=== PATIENT | male | born 1970 | race Caucasian/White ===

== ENCOUNTER 2025-02-10 14:10 | Emergency (ER) | payer BC, SELFPAY ==
[2025-02-10 14:16] VITALS: BP 171/99
[2025-02-10 14:53] LABS: Urine Albumin Negative (Neg - Trace); Urine Bilirubin Negative (Negative); Urine Character Clear (Clear); Urine Color Yellow; Urine Glucose Negative (Negative); Urine Ketone Negative (Negative); Urine Leukocyte Negative (Negative); Urine Nitrite Negative (Negative); Urine Occult Blood Negative (Negative); Urine Specific Gravity 1.005 (<1.030); Urine Urobilinogen Negative (Neg - 1+)
[2025-02-10 15:11] LABS: ALT (SGPT) 30 U/L (0-50); AST (SGOT) 42 U/L (17-59); Albumin 4.9 g/dl (3.5-5.0); Alkaline Phosphatase 50 U/L (38-126); Blood Urea Nitrogen 11 mg/dl (9-20); Calcium 9.8 mg/dl (8.4-10.2); Carbon Dioxide 23 mmol/L (22-30); Chloride 109 mmol/L (98-107); Glucose 130 mg/dl (70-99); Potassium 4.4 mmol/L (3.5-5.1); Sodium 141 mmol/L (135-145); Total Bilirubin 1.3 mg/dl (0.2-1.3); Total Protein 8.1 g/dl (6.3-8.2); eGFR > 60.00
[2025-02-10 15:23] LABS: Troponin I < 0.012 ng/ml
[2025-02-10 18:25] VITALS: BP 162/92; BMI 37.5
[2025-02-10] MEDS: NSS 1000 IV (18:39)
[2025-02-10 18:45] LABS: % Basophils 0.5 % (0-2); % Eosinophils 0.5 % (0-6); % Immature Granulocytes 0.3 % (0-0.5); % Lymphocytes 21.2 % (20.5-51.1); % Monocytes 7.5 % (1.7-9.3); Absolute Lymphocytes 1.7 10^3/uL (1.2-3.4); Absolute Monocytes 0.6 10^3/uL (0.1-0.6); Absolute Neutrophils 5.5 10^3/uL (1.4-6.5); Hematocrit 46.4 % (39.0-52.0); Hemoglobin 16.4 g/dL (13.0-18.0); Mean Corp Hgb Conc. 35.3 g/dL (33.0-37.0); Mean Corpuscular Hgb 30.1 pg (27.0-31.0); Mean Corpuscular Volume 85.1 fL (80.0-94.0); Nucleated Red Blood Cells % 0 % (-); Platelet Count 237 10^3/uL (130-400); Red Blood Cell Count 5.45 10^6/uL (4.70-6.10); Red Cell Dist. Width 12.5 % (11.5-14.5); White Blood Cell Count 7.8 10^3/uL (4.8-10.8)
--- NOTE | 2025-02-10 19:28 | ED.GENMED ---
History of Present Illness
General
Chief Complaint: Dehydration Symptoms
Time Seen by Provider: 02/10/25 17:54
History of Present Illness
History of Present Illness:
54-year-old male with history of hypertension presenting to the emergency department for concern of dehydration. He reports earlier today he was in the car driving his son and became lightheaded. He notes that he was playing street hockey
yesterday and was not sure if he appropriately hydrated and is unsure if he is presently dehydrated. He now tingling to his upper extremities and dry mouth. Denies chest pain or difficulty breathing. Denies fever or recent illness. Denies any
changes in his medications. Denies abdominal pain or GI symptoms. Denies weakness to his extremities. Denies additional acute medical complaints
Past History
Past History
ED Past Medical History: GERD (Eosinophilic esophagitis)
ED Past Surgical History: Other
Social History
Personal:
Living: with family
Phy Exam
Physical Exam
Physical Exam:
General: Well-appearing, no clinical signs of dehydration, nontoxic and in no acute distress
HEENT: protecting airway
Neck: appears supple
CV: Normal heart rate, regular rhythm
Resp: No accessory muscle use, no increased work of breathing, lungs clear to auscultation bilaterally
Abd: Soft and non-distended, no tenderness to palpation
Extremities: No deformities, no swelling
Neuro: alert, no focal neurologic deficit
: deferred
Rectal: deferred
Psych: Normal affect
Skin: Intact
Course
Orders/Labs/Results
Orders:
Orders
02/10/25 14:21
Electrocardiogram (*1) Urgent
Reason for Study: Chest Pain
EKG- Treatment ONCE
02/10/25 14:31
Comprehensive Metabolic Panel Urgent
Troponin I Urgent
02/10/25 14:33
Urinalysis Reflex To Culture Urgent
Date Specimen was Collected: 02/10/25
Time Specimen was Collected: 14:21
02/10/25 18:33
0.9% Sodium Chloride 1000 ml [Nss] 1,000 ml IV BOLUS
02/10/25 18:39
Complete Blood Count/With Diff Urgent
Abnormal Lab Results
02/10/25
14:31
Chloride 109 H mmol/L
(98-107)
Glucose 130 H mg/dl
(70-99)
02/10/25 18:39
02/10/25 14:31
Vital Signs
Initial and Last Documented VS:
Initial Vital Signs
Temp Pulse Resp BP Pulse Ox
97.9 F 65 16 171/99 98
02/10/25 14:16 02/10/25 14:16 02/10/25 14:16 02/10/25 14:16 02/10/25 14:16
Last Documented Vital Signs
Temp Pulse Resp BP Pulse Ox
97.9 F 65 16 162/92 99
02/10/25 14:16 02/10/25 14:16 02/10/25 14:16 02/10/25 18:25 02/10/25 18:25
MDM/Problems Addressed
MDM/Problems Addressed:
54-year-old male with history of hypertension presenting for concern of dehydration. Vital signs on arrival are significant for hypertension.
On exam, patient is resting comfortably, no acute distress or discomfort. EKG obtained on arrival, nonischemic. Patient does have some dryness to his mucous membranes. Otherwise unremarkable cardiac and pulmonary exam. No focal neurologic
deficits, does report some tingling to his upper extremities. Without present concern for CVA or acute central neurologic process in the absence of any motor or sensory deficits. Plan for screening laboratory analysis and IV fluids. Will reassess
for improvement.
19:30 - Labs are unremarkable. No signs of dehydration, normal electrolyte panel, normal blood counts. Patient reports some symptom improvement after IV fluids. Ultimately feel stable for discharge. Return precautions discussed and patient
verbalized understanding
*EKG
Interpreted by ED Provider?: Yes
EKG Intrepretation Date: 02/10/25
EKG Intrepretation Time: 19:30
Interpretation: normal
Heart Rate: 63
Rate: normal
Rhythm: sinus
[place]: normal axis
Interval: normal interval
QRS Pattern: normal QRS
Ischemia: no ischemia
*Critical Care Note
Total Time (30-74mins, 75-104mins- exclusive of procedures): Not Applicable
ED Attending Note
-
Portions of this chart may have been created with voice recognition software.� Occasional wrong word or��sound alike� substitutions may have occurred due to the inherent limitations of voice recognition software.
Discharge Plan
Departure
Prescriptions:
No Action
lorazepam [Ativan] 0.5 mg tablet
0.5 mg PO BID PRN (Reason: anxiety) Qty: 20 0RF
hydroxyzine HCl 50 mg tablet
50 mg PO BID PRN (Reason: Anxiety) Qty: 20 0RF
Referrals:
Flash Sawant MD [Family Provider] -
Interventions
Interventions:
*Risk Screen - Suicide Last Done: 02/10/25 14:16
*General Assessment Last Done: 02/10/25 17:37
*Neglect/Abuse Screening Last Done: 02/10/25 14:16
*ED- Fall Risk Assessment Last Done: 02/10/25 14:16
*ED COVID-19 Vaccine History Last Done: 02/10/25 17:37
ED- Cardiac Assessment Last Done: 02/10/25 17:37
ED- Neurological Assessment Last Done: 02/10/25 17:37
ED- Pulmonary Assessment Last Done: 02/10/25 17:37
Discharge Date and Time
Print Language: DANISH
== END 2025-02-10 20:10 | disposition home or self-care (01) ==
LOC: EMR 14:10
PROVIDERS: Student in an Organized Health Care Education/Training Program; EMERGENCY PHYSICIAN Student in an Organized Health Care Education/Training Program; FAMILY PHYSICIAN Internal Medicine
DX: R20.2 Paresthesia of skin (principal); R42 Dizziness and giddiness; R68.2 Dry mouth, unspecified; I10 Essential (primary) hypertension; K21.9 Gastro-esophageal reflux disease without esophagitis; K20.0 Eosinophilic esophagitis
CPT/HCPCS: 99284; 96360; 80053; 81003; 84484; 85025; 93005

== ENCOUNTER 2025-09-21 14:15 | Emergency (ER) | payer BC, SELFPAY ==
[2025-09-21 14:20] VITALS: BP 174/108
--- NOTE | 2025-09-21 18:55 | ED.GENMED ---
History of Present Illness
<Libra Yoo PA-C - Last Filed: 09/21/25 19:13>
General
Chief Complaint: Head Injury
Time Seen by Provider: 09/21/25 15:44
History of Present Illness
History of Present Illness:
Conrad is a 55-year-old male who was playing ice hockey when he skated into someone else and fell. Denies any loss of consciousness. Was wearing a helmet that did not have a face shield. Complaining of nose pain. Reports bilateral epistaxis
for which his daughter placed bilateral tampons in his naris prior to arrival.
Past History
<Libra Yoo PA-C - Last Filed: 09/21/25 19:13>
Past History
ED Past Medical History: GERD (Eosinophilic esophagitis)
ED Past Surgical History: Other
Social History
Personal:
Living: with family
Phy Exam
<Libra Yoo PA-C - Last Filed: 09/21/25 19:13>
General Physical Exam
General Presentation: well appearing and no apparent distress
General Skin: warm and dry
General Habitus: normal
General Mental: alert
General Hydration: appears well hydrated
ENT Exam
ENT Exam: EOMI, pharynx normal, neck supple and normocephalic
Additional ENT: Periorbital ecchymosis and nasal swelling, tampons placed prior to arrival
Eye Exam
Eye Exam: PERRL, cornea clear and conjunctiva normal
Cardiovascular Exam
Cardiovascular Exam: regular rate/rhythm, no edema, no murmur and normal peripheral pulses
Pulmonary Exam
Pulmonary Exam: lungs clear, no respiratory distress, no rales, no crackles, no rhonchi, no stridor, no wheezing and no cough
Gastrointestinal Exam
Gastrointestinal Exam: normal bowel sounds, non tender, soft, no organomegaly, no pulsatile mass and non distended
Neurological Exam
Neurological Exam: alert, oriented x3, no motor deficits and speech normal
Musculoskeletal Exam
Musculoskeletal Exam: full ROM and no edema
Skin Exam
Skin Exam: normal color, warm/dry, no rash and no petechia
Psychiatric Exam
Psychiatric Exam: normal mood/affect
Course
<Libra Yoo PA-C - Last Filed: 09/21/25 19:13>
Orders/Labs/Results
Orders:
Orders
09/21/25 14:28
Facial Bones wo Contrast CT [CT Facial Bones W/o Iv Contras] Urgent
Comment:
Reason For Exam: head injury
Head wo Contrast CT [CT Head W/o Iv Contrast] Urgent
Comment:
Reason For Exam: head injury
09/21/25 14:29
Finger(s)/Thumb 2 View Lt [CR Finger(s)/thumb Min 2 Vw Lt] Urgent
Comment:
Reason For Exam: injury, bruising
Indicate Which Finger:: Ring Finger
09/21/25 18:03
Tranexamic Acid 1,000 mg .ROUTE .STK-MED ONE
09/21/25 19:01
Aluminium Finger Splint Left ONCE
Vital Signs
Initial and Last Documented VS:
Initial Vital Signs
Temp Pulse Resp BP Pulse Ox
97.8 F 79 20 174/108 98
09/21/25 14:20 09/21/25 14:20 09/21/25 14:20 09/21/25 14:20 09/21/25 14:20
Last Documented Vital Signs
Temp Pulse Resp BP Pulse Ox
97.8 F 79 20 174/108 98
09/21/25 14:20 09/21/25 14:20 09/21/25 14:20 09/21/25 14:20 09/21/25 18:57
<Alfonso Irving DO - Last Filed: 09/21/25 19:18>
Orders/Labs/Results
Orders:
Orders
09/21/25 14:28
Facial Bones wo Contrast CT [CT Facial Bones W/o Iv Contras] Urgent
Comment:
Reason For Exam: head injury
Head wo Contrast CT [CT Head W/o Iv Contrast] Urgent
Comment:
Reason For Exam: head injury
09/21/25 14:29
Finger(s)/Thumb 2 View Lt [CR Finger(s)/thumb Min 2 Vw Lt] Urgent
Comment:
Reason For Exam: injury, bruising
Indicate Which Finger:: Ring Finger
09/21/25 18:03
Tranexamic Acid 1,000 mg .ROUTE .STK-MED ONE
09/21/25 19:01
Aluminium Finger Splint Left ONCE
Vital Signs
Initial and Last Documented VS:
Initial Vital Signs
Temp Pulse Resp BP Pulse Ox
97.8 F 79 20 174/108 98
09/21/25 14:20 09/21/25 14:20 09/21/25 14:20 09/21/25 14:20 09/21/25 14:20
Last Documented Vital Signs
Temp Pulse Resp BP Pulse Ox
97.8 F 79 20 174/108 98
09/21/25 14:20 09/21/25 14:20 09/21/25 14:20 09/21/25 14:20 09/21/25 18:57
Procedures
<Alfonso Irving DO - Last Filed: 09/21/25 19:18>
Nosebleed
Drug treatment: Tranexamic Acid
Treatment: Silver nitrate cautery, Epistat nasal catheter and Vaseline guaze
Additional information:
bleeding brisk from superior portion of R nare. balloon soaked in TXA and vaseline gauze
<Libra Yoo PA-C - Last Filed: 09/21/25 19:13>
MDM/Problems Addressed
Differential Diagnosis Includes:
CT head obtained and negative for any acute intracranial hemorrhage. CT max face obtained and shows bilateral nasal bone fractures right greater than left, anterior nasal septal fracture and fracture fragments of the anterior maxillary spine.
Tampons were removed and bleeding was noted from the right nare. Rhino Rocket replaced. Patient reports continued bleeding down his throat. Spoke with Dr. Lloyd who came and evaluated patient at bedside with me and remove the packing and applied
silver nitrate and TXA. Rhino Rocket replaced with Vaseline gauze surrounding it. Bleeding has slowed and patient reports no longer been able to feel it running down his throat. No evidence of continued bleeding from either nare.
Patient was also found to have a left distal fourth finger fracture. He has been placed in a finger splint. Can follow-up with orthopedics as an outpatient.
Return precautions discussed in detail. Patient would like to return home and follow-up with ENT in the office. Hemodynamically stable. Able to ambulate without difficulty.
<Libra Yoo PA-C - Last Filed: 09/21/25 19:13>
*Pulse Oximetry
SaO2: 98
Oxygen Mode of Delivery: Room air
Patient hypoxic: no
*Critical Care Note
Total Time (30-74mins, 75-104mins- exclusive of procedures): Not Applicable
ED Attending Note
<Libra Yoo PA-C - Last Filed: 09/21/25 19:13>
-
Portions of this chart may have been created with voice recognition software.� Occasional wrong word or��sound alike� substitutions may have occurred due to the inherent limitations of voice recognition software.
<Alfonso Irving DO - Last Filed: 09/21/25 19:18>
ED Attending Note
Patient seen and examined by attending physician: Yes
I performed the substantive portion of visit, reviewed & personally made and approve the management plan that is documented in note by myself or STEPHANIE.: Yes
ED Attending Note:
55-year-old male who was playing ice hockey when he struck the shoulder of another player. Patient presents with epistaxis. Initially a balloon was placed in his right nare with little success. On my assessment patient has bilateral periorbital
ecchymosis moderate with moderate nasal swelling. Does have abrasion to the right temporal region. Assessment and plan: 5.5 cm TXA soaked balloon was placed in the right nare and then packed further into superior portion of the nare with Vaseline
gauze. On reassessment bleeding much improved. Cover with antibiotics and refer to ENT for outpatient follow-up
Discharge Plan
Departure
Discharge Problem:
Fracture of nasal bone, Nasal septum fracture, Closed fracture of maxillary sinus, Epistaxis, Activity, ice hockey
Instructions: Nose Fracture ED, Nosebleeds - ED (DC)
Prescriptions:
New
amoxicillin-pot clavulanate [Augmentin] 500-125 mg tablet
1 tab PO Q12H 7 Days Qty: 14 0RF
No Action
lorazepam [Ativan] 0.5 mg tablet
0.5 mg PO BID PRN (Reason: anxiety) Qty: 20 0RF
hydroxyzine HCl 50 mg tablet
50 mg PO BID PRN (Reason: Anxiety) Qty: 20 0RF
Referrals:
Flash Sawant MD [Family Provider, Internal Medicine]
Activity Restrictions/Additional Instructions:
Leave packing in place until follow-up with ENT in the office. Return to the ER if you develop fevers of 100.[address] the packing in place, continue continued bleeding from your nose or other concerning symptoms. A course of antibiotics have been
sent to you and is important to complete the entire course antibiotics.
Interventions
Interventions:
*Neglect/Abuse Screening Last Done: 09/21/25 14:20
*ED COVID-19 Vaccine History Last Done: 09/21/25 17:29
*ED Influenza Vaccine History Last Done: 09/21/25 17:29
*Risk Screen - Suicide (C-SSRS) Last Done: 09/21/25 14:20
ED-Skin Assessment Last Done: 09/21/25 17:28
ED- Neurological Assessment Last Done: 09/21/25 17:28
Discharge Date and Time
Print Language: [id number]
[2025-09-21 19:20] VITALS: BP 155/88
== END 2025-09-21 19:27 | disposition home or self-care (01) ==
LOC: EMR 14:15
PROVIDERS: EMERGENCY PHYSICIAN Emergency Medicine; FAMILY PHYSICIAN Internal Medicine
DX: S02.2XXA Fracture of nasal bones, initial encounter for closed fracture (principal); S02.401A Maxillary fracture, unspecified side, initial encounter for closed fracture; S62.635A Displaced fracture of distal phalanx of left ring finger, initial encounter for closed fracture; R04.0 Epistaxis; S00.12XA Contusion of left eyelid and periocular area, initial encounter; S00.11XA Contusion of right eyelid and periocular area, initial encounter; S00.81XA Abrasion of other part of head, initial encounter; W03.XXXA Other fall on same level due to collision with another person, initial encounter; Y93.22 Activity, ice hockey; K21.9 Gastro-esophageal reflux disease without esophagitis; K20.0 Eosinophilic esophagitis; Z91.0120 Allergy to eggs, unspecified
CPT/HCPCS: 99284; 30901; 29130; 70450; 70486; 73140